=== PATIENT | male | born 1950 | race African-American/Black ===

== ENCOUNTER 2016-08-22 08:46 | Inpatient (IN) | payer MEDICARE, OTHER ==
[2016-08-22] VITALS (678 sets, daily range): BP systolic 98–104; BP diastolic 70–76; PULSE 67–85; TEMP 96.9–100; O2SAT 73–100
[~2016-08-22] VITALS: Ht 180.3 cm; Wt 81.2 kg
[~2016-08-22 08:46] MED LIST: ALEVE 220MG220 MG PO; ALEVE PRN; ASPIRIN E.C. 8181 MG PO; BIAXIN 500MG T500 MG PO; CLARITIN; DESYREL; FLEXERIL; FLEXERIL10 MG PO; FOLIC ACID 11 MG/TA1 PO; LISINOPRIL2.5 MG PO; LORTAB 5/500 501 TAB PO; MIRALAX PA17 GM/Dose PO; PEN-VEE K500 MG PO; PRINIVIL2.5 MG PO; PROAIR HFA0.09 MG/AC IH; SENNA8.6 MG PO; ZESTORETIC 12.51 TA1 PO; ZOLOFT 25MG25 MG PO; [UNRECOGNIZED DRUG - REMARK]
[2016-08-22] MEDS ORDERED: PERCOCET 325 MG1 TAB PO (09:04)
[2016-08-22] MEDS ORDERED: FENTANYL 50MCG TD (09:06)
[2016-08-22] MEDS ORDERED: CHANTIX 0.5MG0.5 MG PO (09:06)
[2016-08-22] MEDS ORDERED: COMPAZINE 110 MG/TAB PO (09:06)
[2016-08-22] MEDS ORDERED: FLOMAX 0.40.4 MG/CAP PO (09:07)
[2016-08-22] MEDS ORDERED: GERI-TUSSI100 MG/5 M PO (09:08)
[2016-08-22 09:59] LABS: INR 1.5 (0.8-3.0); PROTHROMBIN TIME 16.7 SECONDS (9.7-12.8)
[2016-08-22 10:06] LABS: BASO % 0.1 % (0.0-2.0); EOS # 0.1 (0.0-0.7); EOS % 0.4 % (0-4.0); GRAN # 12.8 (1.4-6.5); HEMATOCRIT 31.5 % (42.0-52.0); HEMOGLOBIN 9.6 g/dl (13.5-18.0); LYMPH # 1.1 (1.2-3.4); LYMPH % 7.1 % (20.0-51.0); MEAN CELL VOLUME 80 fl (80.0-100.0); MEAN CORPUSCULAR HEMOGLOBIN 24 pg (27.0-31.0); MEAN CORPUSCULAR HGB CONC 31 g/dl (33.0-37.0); MEAN PLATELET VOLUME 9.7 fl (7.4-10.4); MONO # 1.2 (0.1-0.6); MONO % 7.9 % (1.7-9.3); PLATELET COUNT 312 K/mm3 (130-400); RED BLOOD COUNT 3.94 M/mm3 (4.20-5.60); REDCELL DISTRIBUTION WIDTH-CV 17.5 % (11.5-14.5); WHITE BLOOD COUNT 15.2 K/mm3 (4.8-10.8)
[2016-08-22] MEDS ORDERED: OPDIVO10 MG/ML IV (10:07)
[2016-08-22 10:12] LABS: ALBUMIN 3.1 gm/dL (3.5-5.0); BILIRUBIN,TOTAL 0.6 mg/dL (0.0-1.0); CALCIUM 9.3 mg/dL (8.4-10.2); CREATININE, serum 0.72 mg/dL (0.66-1.25); POTASSIUM 4.8 mmol/L (3.4-5.0); TOTAL PROTEIN 7.6 gm/dL (6.4-8.2)
[2016-08-22 10:26] LABS: TROPONIN-I 0.091 ng/mL (0.000-0.034)
[2016-08-22 16:41] LABS: PH 5 (5-8); SQUAMOUS EPITHELIAL None Seen /hpf; URINE APPEARANCE Hazy; URINE BACTERIA None Seen /hpf; URINE BILIRUBIN Negative (NEGATIVE); URINE BLOOD Negative (NEGATIVE); URINE COLOR Amber; URINE GLUCOSE Negative (NEGATIVE); URINE KETONE Negative (NEGATIVE); URINE UROBILINOGEN >=4.0 mg/dL (NEGATIVE)
[2016-08-22 16:59] LABS: INFLUENZA B NEGATIVE
[2016-08-23] VITALS (786 sets, daily range): BP systolic 107–139; BP diastolic 64–94; PULSE 64–72; TEMP 97–98.2; O2SAT 37–100
[2016-08-23 06:10] LABS: HEMATOCRIT 32.5 % (42.0-52.0); HEMOGLOBIN 9.9 g/dl (13.5-18.0); MEAN CELL VOLUME 80 fl (80.0-100.0); MEAN CORPUSCULAR HEMOGLOBIN 24 pg (27.0-31.0); MEAN CORPUSCULAR HGB CONC 31 g/dl (33.0-37.0); MEAN PLATELET VOLUME 10.3 fl (7.4-10.4); PLATELET COUNT 339 K/mm3 (130-400); RED BLOOD COUNT 4.06 M/mm3 (4.20-5.60); REDCELL DISTRIBUTION WIDTH-CV 17.5 % (11.5-14.5); WHITE BLOOD COUNT 8.8 K/mm3 (4.8-10.8)
[2016-08-23 06:19] LABS: ADJUSTED CALCIUM 9.1 mg/dL (8.4-10.2); ALBUMIN 2.9 gm/dL (3.5-5.0); BILIRUBIN,TOTAL 0.6 mg/dL (0.0-1.0); CALCIUM 8.2 mg/dL (8.4-10.2); CREATININE, serum 0.59 mg/dL (0.66-1.25); MAGNESIUM 1.8 mg/dL (1.6-2.3); POTASSIUM 4.2 mmol/L (3.4-5.0); TOTAL PROTEIN 7.1 gm/dL (6.4-8.2)
[2016-08-23 07:04] LABS: BAND 4 % (0-10); MYELOCYTE 3 % (0-0); NEUTROPHILS 86 % (42.0-75.2); PLATELET ESTIMATE NORMAL (NORMAL); TOTAL CELLS COUNTED 100
[2016-08-23 07:05] LABS: ADD PATHOLOGY DIFF REVIEW YES
[2016-08-23 07:23] LABS: PATHOLOGY DIFF REVIEW OK
[2016-08-24 03:15] VITALS: BP 98/64; PULSE 71; TEMP 97.1
[2016-08-24 07:44] VITALS: BP 97/62; PULSE 71; TEMP 97.4
[2016-08-24] MEDS ORDERED: ROBITUSSIN A-C S1 M1 PO (09:02)
[2016-08-24 11:32] VITALS: BP 98/61; PULSE 74; TEMP 97.9
[2016-08-24 14:05] LABS: CALCIUM 8.8 mg/dL (8.4-10.2); CREATININE, serum 0.7 mg/dL (0.66-1.25); POTASSIUM 4.8 mmol/L (3.4-5.0)
[2016-08-24 15:48] VITALS: BP 104/65; PULSE 73; TEMP 98.6
[2016-08-24 19:21] VITALS: BP 101/65; PULSE 72; TEMP 97.5
[2016-08-25 01:09] VITALS: BP 102/78; PULSE 86; TEMP 97.7
[2016-08-25 05:04] VITALS: BP 97/62; PULSE 67; TEMP 97.8
[2016-08-25 07:36] LABS: BASO % 0.2 % (0.0-2.0); EOS % 0.1 % (0-4.0); GRAN # 11.6 (1.4-6.5); LYMPH # 2.1 (1.2-3.4); LYMPH % 13.7 % (20.0-51.0); MEAN CELL VOLUME 81 fl (80.0-100.0); MEAN CORPUSCULAR HGB CONC 30 g/dl (33.0-37.0); MEAN PLATELET VOLUME 9.8 fl (7.4-10.4); MONO # 1.4 (0.1-0.6); MONO % 8.8 % (1.7-9.3); PLATELET COUNT 395 K/mm3 (130-400); RED BLOOD COUNT 3.45 M/mm3 (4.20-5.60); REDCELL DISTRIBUTION WIDTH-CV 18.4 % (11.5-14.5); WHITE BLOOD COUNT 15.3 K/mm3 (4.8-10.8)
[2016-08-25 07:44] LABS: CALCIUM 8.9 mg/dL (8.4-10.2); CREATININE, serum 0.72 mg/dL (0.66-1.25); POTASSIUM 3.9 mmol/L (3.4-5.0)
[2016-08-25 08:13] LABS: HEMOGLOBIN 8.5 g/dl (13.5-18.0); MEAN CORPUSCULAR HEMOGLOBIN 25 pg (27.0-31.0)
[2016-08-25 08:24] VITALS: BP 94/53; PULSE 74; TEMP 97.6
[2016-08-25 12:11] VITALS: BP 112/64; PULSE 71; TEMP 97.8
[2016-08-25 15:51] VITALS: BP 105/62; PULSE 79; TEMP 97.7
[2016-08-25 20:06] VITALS: BP 120/73; PULSE 70; TEMP 97.6
[2016-08-26] VITALS (569 sets, daily range): BP systolic 102–121; BP diastolic 60–82; PULSE 71–83; TEMP 97.4–98.1; O2SAT 62–99
[2016-08-26 12:04] LABS: BASO % 0.1 % (0.0-2.0); GRAN % 87.8 % (42.2-75.2); HEMATOCRIT 30.2 % (42.0-52.0); HEMOGLOBIN 9.3 g/dl (13.5-18.0); LYMPH % 5.6 % (20.0-51.0); MEAN CELL VOLUME 82 fl (80.0-100.0); MEAN CORPUSCULAR HEMOGLOBIN 25 pg (27.0-31.0); MEAN CORPUSCULAR HGB CONC 31 g/dl (33.0-37.0); MEAN PLATELET VOLUME 9.2 fl (7.4-10.4); MONO # 0.9 (0.1-0.6); MONO % 5.3 % (1.7-9.3); PLATELET COUNT 474 K/mm3 (130-400); REDCELL DISTRIBUTION WIDTH-CV 19.1 % (11.5-14.5)
[2016-08-26 12:24] LABS: ARTERIAL BLD GAS O2 SATURATION 90.6 % (92-100); ARTERIAL BLD GAS TCO2 CT 23.1; ARTERIAL BLOOD GAS BASE EXCESS -1.4 (-2-2); ARTERIAL BLOOD GAS HCO3 22.1 meq/L (22-26); ARTERIAL BLOOD GAS PHT 7.45 C (7.35-7.45); ARTERIAL BLOOD GAS PO2 62.3 mmHg (80-100); ARTERIAL BLOOD GAS PO2T 62.3 (80-100); ARTERIAL BLOOD GAS pH 7.45 (7.35-7.45); OXYHEMOGLOBIN 89.9 %
[2016-08-26 12:27] LABS: ALLEN TEST YES; ATS? YES
[2016-08-26 12:28] LABS: ALLENS TEST RESULT PASS
[2016-08-27] VITALS (1193 sets, daily range): BP systolic 106–119; BP diastolic 72–84; PULSE 72–82; TEMP 97.3–98.1; O2SAT 51–100
[2016-08-27 05:52] LABS: BASO % 0.1 % (0.0-2.0); GRAN % 87.6 % (42.2-75.2); HEMATOCRIT 29.2 % (42.0-52.0); LYMPH # 0.9 (1.2-3.4); LYMPH % 7.4 % (20.0-51.0); MEAN CELL VOLUME 80 fl (80.0-100.0); MEAN CORPUSCULAR HEMOGLOBIN 25 pg (27.0-31.0); MEAN CORPUSCULAR HGB CONC 31 g/dl (33.0-37.0); MEAN PLATELET VOLUME 9.3 fl (7.4-10.4); MONO # 0.5 (0.1-0.6); MONO % 3.7 % (1.7-9.3); PLATELET COUNT 467 K/mm3 (130-400); RED BLOOD COUNT 3.64 M/mm3 (4.20-5.60); REDCELL DISTRIBUTION WIDTH-CV 19.2 % (11.5-14.5); WHITE BLOOD COUNT 12.6 K/mm3 (4.8-10.8)
[2016-08-27 06:01] LABS: ADJUSTED CALCIUM 9.7 mg/dL (8.4-10.2); ALBUMIN 3.4 gm/dL (3.5-5.0); BILIRUBIN,TOTAL 0.8 mg/dL (0.0-1.0); CALCIUM 9.2 mg/dL (8.4-10.2); CREATININE, serum 0.75 mg/dL (0.66-1.25); MAGNESIUM 1.7 mg/dL (1.6-2.3); PHOSPHOROUS 3.4 mg/dL (2.5-4.5); POTASSIUM 4.1 mmol/L (3.4-5.0); TOTAL PROTEIN 7.7 gm/dL (6.4-8.2)
[2016-08-28] VITALS (328 sets, daily range): BP systolic 104–129; BP diastolic 62–72; PULSE 65–84; TEMP 97.8–98.9; O2SAT 40–100
[2016-08-28 05:56] LABS: BASO % 0.1 % (0.0-2.0); GRAN # 14.8 (1.4-6.5); GRAN % 90.6 % (42.2-75.2); LYMPH # 0.6 (1.2-3.4); LYMPH % 3.9 % (20.0-51.0); MEAN CELL VOLUME 81 fl (80.0-100.0); MEAN CORPUSCULAR HGB CONC 31 g/dl (33.0-37.0); MEAN PLATELET VOLUME 9.5 fl (7.4-10.4); MONO # 0.7 (0.1-0.6); MONO % 4.5 % (1.7-9.3); PLATELET COUNT 469 K/mm3 (130-400); RED BLOOD COUNT 3.36 M/mm3 (4.20-5.60); REDCELL DISTRIBUTION WIDTH-CV 19.1 % (11.5-14.5); WHITE BLOOD COUNT 16.3 K/mm3 (4.8-10.8)
[2016-08-28 05:58] LABS: HEMATOCRIT 27.1 % (42.0-52.0); HEMOGLOBIN 8.3 g/dl (13.5-18.0); MEAN CORPUSCULAR HEMOGLOBIN 25 pg (27.0-31.0)
[2016-08-28 05:59] LABS: INR 1.6 (0.8-3.0)
[2016-08-28 06:09] LABS: CREATININE, serum 0.75 mg/dL (0.66-1.25); POTASSIUM 4.2 mmol/L (3.4-5.0)
[2016-08-28 10:24] LABS: TOTAL IRON BINDING CAPACITY 198 ug/dL (261-462)
[2016-08-29 00:40] VITALS: BP 125/74; PULSE 85; TEMP 98.2
[2016-08-29 05:06] VITALS: BP 115/73; PULSE 57; TEMP 97.5
[2016-08-29 05:19] LABS: BASO % 0.1 % (0.0-2.0); GRAN # 14.4 (1.4-6.5); GRAN % 92.1 % (42.2-75.2); LYMPH # 0.5 (1.2-3.4); LYMPH % 3.3 % (20.0-51.0); MEAN CELL VOLUME 82 fl (80.0-100.0); MEAN CORPUSCULAR HGB CONC 31 g/dl (33.0-37.0); MEAN PLATELET VOLUME 9.1 fl (7.4-10.4); MONO # 0.6 (0.1-0.6); MONO % 3.8 % (1.7-9.3); PLATELET COUNT 498 K/mm3 (130-400); RED BLOOD COUNT 3.46 M/mm3 (4.20-5.60); REDCELL DISTRIBUTION WIDTH-CV 19.5 % (11.5-14.5); WHITE BLOOD COUNT 15.7 K/mm3 (4.8-10.8)
[2016-08-29 05:22] LABS: HEMATOCRIT 28.2 % (42.0-52.0); HEMOGLOBIN 8.6 g/dl (13.5-18.0); MEAN CORPUSCULAR HEMOGLOBIN 25 pg (27.0-31.0)
[2016-08-29 05:26] LABS: INR 1.7 (0.8-3.0)
[2016-08-29 05:32] LABS: CALCIUM 9.2 mg/dL (8.4-10.2); CREATININE, serum 0.65 mg/dL (0.66-1.25); POTASSIUM 3.8 mmol/L (3.4-5.0)
[2016-08-29 05:37] LABS: VANCOMYCIN TROUGH 18.53 ug/mL (7.00-20.00)
[2016-08-29 09:39] VITALS: BP 117/67; PULSE 67; TEMP 97.5
[2016-08-29 13:41] VITALS: BP 105/65; PULSE 60; TEMP 97.4
[2016-08-29 18:12] VITALS: BP 115/69; PULSE 69; TEMP 98.1
[2016-08-29 21:51] VITALS: BP 112/67; PULSE 67; TEMP 97.8
[2016-08-30 01:34] VITALS: BP 117/73; PULSE 64; TEMP 98
[2016-08-30 05:55] VITALS: BP 130/78; PULSE 63; TEMP 98.6
[2016-08-30 07:46] LABS: CALCIUM 8.7 mg/dL (8.4-10.2); CREATININE, serum 0.65 mg/dL (0.66-1.25); POTASSIUM 3.5 mmol/L (3.4-5.0)
[2016-08-30 08:22] LABS: PROTHROMBIN TIME 22.1 SECONDS (9.7-12.8)
[2016-08-30 09:48] VITALS: BP 112/64; PULSE 75; TEMP 97.9
[2016-08-30 12:00] LABS: BASO % 0.1 % (0.0-2.0); GRAN # 13.4 (1.4-6.5); GRAN % 89.2 % (42.2-75.2); LYMPH # 0.5 (1.2-3.4); LYMPH % 3.4 % (20.0-51.0); MEAN CELL VOLUME 83 fl (80.0-100.0); MEAN CORPUSCULAR HGB CONC 30 g/dl (33.0-37.0); MEAN PLATELET VOLUME 9.5 fl (7.4-10.4); MONO % 6.5 % (1.7-9.3); PLATELET COUNT 541 K/mm3 (130-400); RED BLOOD COUNT 3.38 M/mm3 (4.20-5.60); REDCELL DISTRIBUTION WIDTH-CV 19.7 % (11.5-14.5)
[2016-08-30 12:03] LABS: HEMATOCRIT 28.1 % (42.0-52.0); HEMOGLOBIN 8.5 g/dl (13.5-18.0); MEAN CORPUSCULAR HEMOGLOBIN 25 pg (27.0-31.0)
[2016-08-30 13:31] VITALS: BP 112/61; PULSE 67; TEMP 97.1
[2016-08-30 18:14] VITALS: BP 104/57; PULSE 73; TEMP 98.3
[2016-08-30 21:07] VITALS: BP 126/66; PULSE 69; TEMP 98.3
[2016-08-31 05:28] VITALS: BP 131/78; PULSE 58; TEMP 97.5
[2016-08-31 07:02] LABS: BASO % 0.1 % (0.0-2.0); GRAN # 13.4 (1.4-6.5); GRAN % 86.7 % (42.2-75.2); LYMPH # 0.8 (1.2-3.4); LYMPH % 5.2 % (20.0-51.0); MEAN CELL VOLUME 82 fl (80.0-100.0); MEAN CORPUSCULAR HGB CONC 31 g/dl (33.0-37.0); MONO # 1.1 (0.1-0.6); MONO % 7.1 % (1.7-9.3); PLATELET COUNT 564 K/mm3 (130-400); RED BLOOD COUNT 3.68 M/mm3 (4.20-5.60); REDCELL DISTRIBUTION WIDTH-CV 20.1 % (11.5-14.5); WHITE BLOOD COUNT 15.5 K/mm3 (4.8-10.8)
[2016-08-31 07:03] LABS: HEMATOCRIT 30.2 % (42.0-52.0); HEMOGLOBIN 9.2 g/dl (13.5-18.0); MEAN CORPUSCULAR HEMOGLOBIN 25 pg (27.0-31.0)
[2016-08-31 07:10] LABS: INR 2.2 (0.8-3.0); PROTHROMBIN TIME 24.7 SECONDS (9.7-12.8)
[2016-08-31 07:19] LABS: CALCIUM 9.1 mg/dL (8.4-10.2); CREATININE, serum 0.67 mg/dL (0.66-1.25); POTASSIUM 3.8 mmol/L (3.4-5.0)
[2016-08-31 07:44] VITALS: BP 129/72; PULSE 55; TEMP 98
[2016-08-31] MEDS ORDERED: COUMADIN 3MG3 MG/TAB PO (10:16)
[2016-08-31] MEDS ORDERED: CORDARONE200 MG/TAB PO (10:20)
[2016-08-31] MEDS ORDERED: K-DUR20 MEQ PO (10:22)
[2016-08-31] MEDS ORDERED: LASIX 40MG TABL40 MG PO (10:23)
[2016-08-31] MEDS ORDERED: PREDNISONE20 MG PO (10:24)
[2016-08-31 14:33] VITALS: BP 118/67; PULSE 75; TEMP 98
== END 2016-08-31 16:45 | disposition home health service (06) | DRG 190 ==
LOC: COL.ER 08:46 → ICU 10:55 → MEDICAL 08-23 17:11 → ICU 08-26 13:42 → IMCU 08-27 22:39 → ICU 08-27 22:39 → IMCU 08-27 22:39 → SURG 08-28 14:10 → IMCU 08-28 14:10 → SURG 08-31 16:45
PROVIDERS: Emergency Medicine; Family Medicine; Internal Medicine; Physician Assistant
PROC: 5A2204Z Restoration of Cardiac Rhythm, Single (ICD-10-PCS; principal; 2016-08-22)
DX: J44.0 Chronic obstructive pulmonary disease with (acute) lower respiratory infection (principal); J18.9 Pneumonia, unspecified organism; I26.99 Other pulmonary embolism without acute cor pulmonale; J96.01 Acute respiratory failure with hypoxia; I50.21 Acute systolic (congestive) heart failure; C34.02 Malignant neoplasm of left main bronchus; E44.0 Moderate protein-calorie malnutrition; C79.9 Secondary malignant neoplasm of unspecified site; I48.91 Unspecified atrial fibrillation; Z85.46 Personal history of malignant neoplasm of prostate; F17.210 Nicotine dependence, cigarettes, uncomplicated; I11.0 Hypertensive heart disease with heart failure; J44.1 Chronic obstructive pulmonary disease with (acute) exacerbation
CPT/HCPCS: 99223-AI; 99232-AI; 99233-AI; 99239; C1751; C1894; J0282; J0692; J0696; J1160; J1644; J1650; J1940; J1956; J2270; J2405; J2704; J2920; J2930; J3370; J7030; J7050; J7060; J7512; Q9967

== ENCOUNTER 2016-09-09 12:44 | Emergency (ER) | payer MEDICARE, OTHER ==
[~2016-09-09] VITALS: Ht 180.3 cm; Wt 80.0 kg
[~2016-09-09 12:44] MED LIST changes: +CHANTIX 0.5MG0.5 MG PO; +COMPAZINE 110 MG/TAB PO; +CORDARONE200 MG/TAB PO; +COUMADIN 3MG3 MG/TAB PO; +FENTANYL 50MCG TD; +FLOMAX 0.40.4 MG/CAP PO; +GERI-TUSSI100 MG/5 M PO; +K-DUR20 MEQ PO; +LASIX 40MG TABL40 MG PO; +OPDIVO10 MG/ML IV; +PERCOCET 325 MG1 TAB PO; +PREDNISONE20 MG PO; +ROBITUSSIN A-C S1 M1 PO
[2016-09-09 12:48] VITALS: PULSE 92
[2016-09-09 13:31] LABS: INR 2.7 (0.8-3.0)
[2016-09-09 13:33] LABS: PARTIAL THROMBOPLASTIN TIME 38.6 SECONDS (26.0-37.0)
[2016-09-09 13:35] LABS: BASO % 0.1 % (0.0-2.0); EOS % 0.1 % (0-4.0); GRAN # 14.2 (1.4-6.5); GRAN % 91.2 % (42.2-75.2); HEMATOCRIT 28.7 % (42.0-52.0); HEMOGLOBIN 8.9 g/dl (13.5-18.0); LYMPH # 0.4 (1.2-3.4); LYMPH % 2.7 % (20.0-51.0); MEAN CELL VOLUME 84 fl (80.0-100.0); MEAN CORPUSCULAR HEMOGLOBIN 26 pg (27.0-31.0); MEAN CORPUSCULAR HGB CONC 31 g/dl (33.0-37.0); MONO # 0.8 (0.1-0.6); MONO % 4.9 % (1.7-9.3); PLATELET COUNT 419 K/mm3 (130-400); RED BLOOD COUNT 3.43 M/mm3 (4.20-5.60); REDCELL DISTRIBUTION WIDTH-CV 21.2 % (11.5-14.5); WHITE BLOOD COUNT 15.6 K/mm3 (4.8-10.8)
[2016-09-09] MEDS ORDERED: CEPHALEXIN500 M1 PO (17:35)
[2016-09-09 18:06] VITALS: BP 122/80
== END 2016-09-09 18:06 | disposition home or self-care (01) ==
LOC: COL.ER 12:44
PROVIDERS: Emergency Medicine
DX: R04.0 Epistaxis (principal); D64.9 Anemia, unspecified; Z79.01 Long term (current) use of anticoagulants; Z86.711 Personal history of pulmonary embolism; Z99.81 Dependence on supplemental oxygen; I10 Essential (primary) hypertension; F17.210 Nicotine dependence, cigarettes, uncomplicated

== ENCOUNTER 2016-09-11 00:59 | Observation (INO) | payer MEDICARE, OTHER ==
[2016-09-11] VITALS (19 sets, daily range): BP systolic 90–129; BP diastolic 37–88; PULSE 78–88; TEMP 97–98.7
[~2016-09-11] VITALS: Ht 180.3 cm; Wt 71.3 kg
[~2016-09-11 00:59] MED LIST changes: +CEPHALEXIN500 M1 PO
[2016-09-11 02:01] LABS: BASO % 0.1 % (0.0-2.0); EOS % 0.1 % (0-4.0); GRAN # 13.8 (1.4-6.5); GRAN % 81.1 % (42.2-75.2); LYMPH # 1.8 (1.2-3.4); LYMPH % 10.8 % (20.0-51.0); MEAN CELL VOLUME 81 fl (80.0-100.0); MEAN CORPUSCULAR HGB CONC 32 g/dl (33.0-37.0); MEAN PLATELET VOLUME 9.1 fl (7.4-10.4); MONO # 1.2 (0.1-0.6); MONO % 7.2 % (1.7-9.3); PLATELET COUNT 386 K/mm3 (130-400); REDCELL DISTRIBUTION WIDTH-CV 21.2 % (11.5-14.5)
[2016-09-11 02:02] LABS: HEMATOCRIT 22.7 % (42.0-52.0); MEAN CORPUSCULAR HEMOGLOBIN 26 pg (27.0-31.0)
[2016-09-11 02:03] LABS: HEMOGLOBIN 7.3 g/dl (13.5-18.0)
[2016-09-11 02:10] LABS: ADJUSTED CALCIUM 9.6 mg/dL (8.4-10.2); ALBUMIN 3.3 gm/dL (3.5-5.0); BILIRUBIN,TOTAL 0.8 mg/dL (0.0-1.0); CREATININE, serum 0.74 mg/dL (0.66-1.25); POTASSIUM 4.7 mmol/L (3.4-5.0)
[2016-09-11 02:13] LABS: INR 2.8 (0.8-3.0)
[2016-09-11 04:30] LABS: HEMATOCRIT 21.2 % (42.0-52.0); HEMOGLOBIN 6.8 g/dl (13.5-18.0)
[2016-09-11 17:03] LABS: HEMATOCRIT 27.2 % (42.0-52.0); HEMOGLOBIN 8.6 g/dl (13.5-18.0)
[2016-09-11 17:11] LABS: INR 2.4 (0.8-3.0); PROTHROMBIN TIME 27.6 SECONDS (9.7-12.8)
[2016-09-12 02:58] VITALS: BP 127/77; PULSE 80; TEMP 98.7
[2016-09-12 07:35] LABS: HEMATOCRIT 25.8 % (42.0-52.0); HEMOGLOBIN 8.2 g/dl (13.5-18.0)
[2016-09-12 07:44] LABS: CALCIUM 9.1 mg/dL (8.4-10.2); CREATININE, serum 0.83 mg/dL (0.66-1.25); MAGNESIUM 1.9 mg/dL (1.6-2.3)
[2016-09-12 07:58] LABS: PROTHROMBIN TIME 22.3 SECONDS (9.7-12.8)
[2016-09-12 08:22] VITALS: BP 118/74; PULSE 81; TEMP 97.6
[2016-09-12] MEDS ORDERED: AMOXICILLIN 8751 TAB PO (09:49)
[2016-09-12] MEDS ORDERED: FERROUS SU325 MG/TAB PO (09:55)
== END 2016-09-12 11:29 | disposition home or self-care (01) ==
LOC: COL.ER 00:59 → MEDICAL 02:48
PROVIDERS: Internal Medicine; Nurse Practitioner Family; Physician Assistant
DX: R04.0 Epistaxis (principal); D64.9 Anemia, unspecified; D68.32 Hemorrhagic disorder due to extrinsic circulating anticoagulants; C34.90 Malignant neoplasm of unspecified part of unspecified bronchus or lung; Z87.891 Personal history of nicotine dependence; I50.9 Heart failure, unspecified; I48.91 Unspecified atrial fibrillation; Z79.01 Long term (current) use of anticoagulants; Z86.711 Personal history of pulmonary embolism; J44.9 Chronic obstructive pulmonary disease, unspecified; Z85.46 Personal history of malignant neoplasm of prostate
CPT/HCPCS: 99239; G0378; J1940; J7030; J7512; P9016

== ENCOUNTER 2016-09-14 10:27 | Day surgery (SDC) | payer MEDICARE, OTHER ==
[~2016-09-14] VITALS: Ht 180.3 cm; Wt 68.6 kg
[~2016-09-14 10:27] MED LIST changes: +AMOXICILLIN 8751 TAB PO; +FERROUS SU325 MG/TAB PO
[2016-09-14] MEDS ORDERED: FERROUS SU325 MG/TAB PO (11:24)
[2016-09-14 11:26] VITALS: BP 111/75; PULSE 72
[2016-09-14 11:57] LABS: MEAN CELL VOLUME 85 fl (80.0-100.0); MEAN CORPUSCULAR HGB CONC 31 g/dl (33.0-37.0); MEAN PLATELET VOLUME 9.3 fl (7.4-10.4); PLATELET COUNT 337 K/mm3 (130-400); RED BLOOD COUNT 3.04 M/mm3 (4.20-5.60); REDCELL DISTRIBUTION WIDTH-CV 20.7 % (11.5-14.5); WHITE BLOOD COUNT 10.4 K/mm3 (4.8-10.8)
[2016-09-14 11:58] LABS: HEMATOCRIT 25.8 % (42.0-52.0); MEAN CORPUSCULAR HEMOGLOBIN 26 pg (27.0-31.0)
[2016-09-14 12:00] LABS: INR 1.6 (0.8-3.0); PROTHROMBIN TIME 18.1 SECONDS (9.7-12.8)
[2016-09-14 12:51] VITALS: BP 117/70; PULSE 76
[2016-09-14 13:55] VITALS: BP 109/67; PULSE 73; TEMP 98.1
[2016-09-14 14:10] VITALS: BP 107/61; PULSE 74
== END 2016-09-14 14:20 | disposition home or self-care (01) ==
LOC: EUO 10:27 → COL.RAD 10:30 → EUO 10:30
PROVIDERS: Radiology Diagnostic Radiology
DX: I26.99 Other pulmonary embolism without acute cor pulmonale (principal); I48.91 Unspecified atrial fibrillation; I50.9 Heart failure, unspecified; I10 Essential (primary) hypertension; Z79.01 Long term (current) use of anticoagulants; Z85.118 Personal history of other malignant neoplasm of bronchus and lung; Z87.891 Personal history of nicotine dependence; Z85.46 Personal history of malignant neoplasm of prostate
CPT/HCPCS: C1880; J7120; Q9967

== ENCOUNTER 2016-09-17 08:43 | Inpatient (IN) | payer MEDICARE, OTHER ==
[~2016-09-17] VITALS: Ht 177.8 cm; Wt 75.1 kg
[2016-09-17 09:23] LABS: VENOUS BLOOD GAS BE 6.1 (-4-4)
[2016-09-17 09:24] LABS: VENOUS BLOOD GAS SITE VENIPUNCTURE
[2016-09-17 09:35] LABS: BASO % 0.1 % (0.0-2.0); EOS % 0.2 % (0-4.0); GRAN # 8.6 (1.4-6.5); GRAN % 79.9 % (42.2-75.2); LYMPH # 1.2 (1.2-3.4); MEAN CELL VOLUME 87 fl (80.0-100.0); MEAN CORPUSCULAR HGB CONC 31 g/dl (33.0-37.0); MEAN PLATELET VOLUME 9.3 fl (7.4-10.4); MONO # 0.8 (0.1-0.6); MONO % 7.7 % (1.7-9.3); PLATELET COUNT 338 K/mm3 (130-400); RED BLOOD COUNT 2.96 M/mm3 (4.20-5.60); WHITE BLOOD COUNT 10.8 K/mm3 (4.8-10.8)
[2016-09-17 09:37] LABS: HEMATOCRIT 25.6 % (42.0-52.0); HEMOGLOBIN 7.8 g/dl (13.5-18.0); MEAN CORPUSCULAR HEMOGLOBIN 26 pg (27.0-31.0)
[2016-09-17 09:39] LABS: INR 1.5 (0.8-3.0); PROTHROMBIN TIME 16.4 SECONDS (9.7-12.8)
[2016-09-17 09:50] LABS: ANION GAP 11 mmol/L (7-16); BLOOD UREA NITROGEN 19 mg/dL (9-20); CALCIUM 9.4 mg/dL (8.4-10.2); CARBON DIOXIDE 30 mmol/L (22-30); CHLORIDE 94 mmol/L (98-107); GLUCOSE 118 mg/dL (74-106); POTASSIUM 4.1 mmol/L (3.4-5.0); SODIUM 135 mmol/L (137-145)
[2016-09-17 09:58] LABS: B-TYPE NATRIURETIC PEPTIDE 807 pg/mL (0-125)
[2016-09-17 10:03] LABS: TROPONIN-I < 0.012 ng/mL (0.000-0.034)
[2016-09-17 13:00] VITALS: BP 106/77; PULSE 68; TEMP 97.4
[2016-09-17 15:21] VITALS: BP 101/59; PULSE 80; TEMP 96.8
[2016-09-17 19:31] VITALS: BP 112/61; PULSE 75; TEMP 97.4
[2016-09-17 23:37] VITALS: BP 115/74; PULSE 72; TEMP 98.2
[2016-09-18 03:43] VITALS: BP 106/77; PULSE 73; TEMP 98.2
[2016-09-18 07:50] VITALS: BP 107/62; PULSE 68; TEMP 97.6
[2016-09-18 11:19] VITALS: BP 113/60; PULSE 70; TEMP 98.9
[2016-09-18 16:06] VITALS: BP 108/61; PULSE 64; TEMP 98.9
[2016-09-18 20:15] VITALS: BP 121/60; PULSE 66; TEMP 97.4
[2016-09-19 00:29] VITALS: BP 116/66; PULSE 66; TEMP 98.7
[2016-09-19 03:51] VITALS: BP 123/76; PULSE 55; TEMP 98.5
[2016-09-19 07:30] VITALS: BP 123/71; PULSE 85; TEMP 97.9
[2016-09-19 07:35] LABS: BASO % 0.1 % (0.0-2.0); EOS % 0.1 % (0-4.0); GRAN % 75.9 % (42.2-75.2); LYMPH # 2.2 (1.2-3.4); LYMPH % 13.9 % (20.0-51.0); MEAN CELL VOLUME 86 fl (80.0-100.0); MEAN CORPUSCULAR HGB CONC 30 g/dl (33.0-37.0); MEAN PLATELET VOLUME 9.5 fl (7.4-10.4); MONO # 1.4 (0.1-0.6); MONO % 8.9 % (1.7-9.3); PLATELET COUNT 437 K/mm3 (130-400); RED BLOOD COUNT 2.96 M/mm3 (4.20-5.60); REDCELL DISTRIBUTION WIDTH-CV 19.9 % (11.5-14.5); WHITE BLOOD COUNT 15.9 K/mm3 (4.8-10.8)
[2016-09-19 07:39] LABS: HEMATOCRIT 25.4 % (42.0-52.0); HEMOGLOBIN 7.7 g/dl (13.5-18.0); MEAN CORPUSCULAR HEMOGLOBIN 26 pg (27.0-31.0)
[2016-09-19 07:48] LABS: CALCIUM 9.2 mg/dL (8.4-10.2); CREATININE, serum 0.68 mg/dL (0.66-1.25); POTASSIUM 3.9 mmol/L (3.4-5.0)
[2016-09-19] MEDS ORDERED: LOVENOX 8080 MG/0.8 SQ (10:35)
[2016-09-19] MEDS ORDERED: PRINCIPEN500 MG PO (10:38)
[2016-09-19 10:59] VITALS: BP 111/62; PULSE 73; TEMP 98.6
== END 2016-09-19 13:00 | disposition home health service (06) | DRG 189 ==
LOC: COL.ER 08:43 → MEDICAL 11:20
PROVIDERS: Emergency Medicine; Family Medicine
DX: J96.21 Acute and chronic respiratory failure with hypoxia (principal); I26.99 Other pulmonary embolism without acute cor pulmonale; E43 Unspecified severe protein-calorie malnutrition; I50.22 Chronic systolic (congestive) heart failure; C34.12 Malignant neoplasm of upper lobe, left bronchus or lung; C79.89 Secondary malignant neoplasm of other specified sites; C79.51 Secondary malignant neoplasm of bone; I48.91 Unspecified atrial fibrillation; J44.9 Chronic obstructive pulmonary disease, unspecified
CPT/HCPCS: 99232-AI; 99233-AI; 99238; C1880; J1650; J2930; J7120; J7512; Q9967

== ENCOUNTER 2016-09-22 16:03 | Emergency (ER) | payer MEDICARE, OTHER ==
[~2016-09-22] VITALS: Ht 180.3 cm; Wt 68.2 kg
[~2016-09-22 16:03] MED LIST changes: +LOVENOX 8080 MG/0.8 SQ; +PRINCIPEN500 MG PO
[2016-09-22 16:09] VITALS: TEMP 98
[2016-09-22 16:37] LABS: BASO % 0.2 % (0.0-2.0); EOS # 0.1 (0.0-0.7); EOS % 0.6 % (0-4.0); GRAN # 9.3 (1.4-6.5); GRAN % 72.8 % (42.2-75.2); LYMPH # 1.6 (1.2-3.4); LYMPH % 12.4 % (20.0-51.0); MEAN CELL VOLUME 86 fl (80.0-100.0); MEAN CORPUSCULAR HGB CONC 30 g/dl (33.0-37.0); MEAN PLATELET VOLUME 9.2 fl (7.4-10.4); MONO # 1.7 (0.1-0.6); PLATELET COUNT 436 K/mm3 (130-400); RED BLOOD COUNT 3.22 M/mm3 (4.20-5.60); REDCELL DISTRIBUTION WIDTH-CV 19.5 % (11.5-14.5); WHITE BLOOD COUNT 12.8 K/mm3 (4.8-10.8)
[2016-09-22 16:38] LABS: HEMATOCRIT 27.8 % (42.0-52.0); HEMOGLOBIN 8.3 g/dl (13.5-18.0); INR 1.3 (0.8-3.0); MEAN CORPUSCULAR HEMOGLOBIN 26 pg (27.0-31.0)
[2016-09-22 16:40] LABS: PARTIAL THROMBOPLASTIN TIME 32.8 SECONDS (26.0-37.0)
[2016-09-22 16:47] LABS: CALCIUM 9.2 mg/dL (8.4-10.2); CREATININE, serum 0.85 mg/dL (0.66-1.25); POTASSIUM 4.4 mmol/L (3.4-5.0)
[2016-09-22 18:40] VITALS: BP 123/77; PULSE 80
== END 2016-09-22 19:13 | disposition short-term general hospital (02) ==
LOC: COL.ER 16:03
PROVIDERS: Emergency Medicine
DX: R04.0 Epistaxis (principal); I48.91 Unspecified atrial fibrillation; I25.10 Atherosclerotic heart disease of native coronary artery without angina pectoris; I11.0 Hypertensive heart disease with heart failure; I50.9 Heart failure, unspecified; Z87.891 Personal history of nicotine dependence; Z86.718 Personal history of other venous thrombosis and embolism
CPT/HCPCS: J7030

== ENCOUNTER 2016-10-26 13:08 | Inpatient (IN) | payer MEDICARE, OTHER ==
[~2016-10-26] VITALS: Ht 180.3 cm; Wt 74.1 kg
[2016-10-26] MEDS ORDERED: FERROUS SU325 MG/TAB PO (15:47)
[2016-10-26] MEDS ORDERED: LASIX 40MG TABL40 MG PO (15:49)
[2016-10-26] MEDS ORDERED: K-TAB20 PO (16:11)
[2016-10-26] MEDS ORDERED: CORDARONE200 MG/TAB PO (16:19)
[2016-10-26] MEDS ORDERED: ROXICODONE15 MG PO (16:27)
[2016-10-26] MEDS ORDERED: ELIQUIS 5MG PO (16:29)
[2016-10-26] MEDS ORDERED: NATURAL C500 MG PO (16:30)
[2016-10-26] MEDS ORDERED: CEPHALEXIN500 M1 PO (16:32)
[2016-10-26 16:34] VITALS: BP 118/68; PULSE 72; TEMP 98.2
[2016-10-26 18:05] LABS: ADD PATHOLOGY DIFF REVIEW NO
[2016-10-26 18:08] LABS: MEAN CELL VOLUME 86 fl (80.0-100.0); MEAN CORPUSCULAR HGB CONC 29 g/dl (33.0-37.0); PLATELET COUNT 546 K/mm3 (130-400); RED BLOOD COUNT 3.15 M/mm3 (4.20-5.60); REDCELL DISTRIBUTION WIDTH-CV 19.2 % (11.5-14.5); WHITE BLOOD COUNT 14.8 K/mm3 (4.8-10.8)
[2016-10-26] MEDS ORDERED: MIRALAX PA17 GM/Dose PO (18:08)
[2016-10-26 18:17] LABS: BAND 1 % (0-10); NEUTROPHILS 91 % (42.0-75.2); TOTAL CELLS COUNTED 100
[2016-10-26 18:18] LABS: ADJUSTED CALCIUM 10.2 mg/dL (8.4-10.2); ALBUMIN 3.2 gm/dL (3.5-5.0); BILIRUBIN,TOTAL 0.5 mg/dL (0.0-1.0); CALCIUM 9.6 mg/dL (8.4-10.2); CREATININE, serum 0.66 mg/dL (0.66-1.25); POTASSIUM 3.8 mmol/L (3.4-5.0); TOTAL PROTEIN 7.4 gm/dL (6.4-8.2)
[2016-10-26 18:19] LABS: ANISOCYTOSIS 1+; HEMATOCRIT 27.1 % (42.0-52.0); HEMOGLOBIN 7.9 g/dl (13.5-18.0); HYPOCHROMIA 1+; MEAN CORPUSCULAR HEMOGLOBIN 25 pg (27.0-31.0); POLYCHROMASIA 1+
[2016-10-26 19:28] VITALS: BP 106/59; PULSE 82; TEMP 98.9
[2016-10-26 23:29] VITALS: BP 07/74; BP 107/74; PULSE 62; TEMP 97.7
[2016-10-27 03:22] VITALS: BP 105/66; PULSE 65; TEMP 98.1
[2016-10-27 08:06] LABS: ADD PATHOLOGY DIFF REVIEW NO
[2016-10-27 08:11] LABS: MEAN CELL VOLUME 87 fl (80.0-100.0); MEAN CORPUSCULAR HGB CONC 29 g/dl (33.0-37.0); MEAN PLATELET VOLUME 9.2 fl (7.4-10.4); PLATELET COUNT 530 K/mm3 (130-400); RED BLOOD COUNT 2.93 M/mm3 (4.20-5.60); REDCELL DISTRIBUTION WIDTH-CV 19.1 % (11.5-14.5); WHITE BLOOD COUNT 12.5 K/mm3 (4.8-10.8)
[2016-10-27 08:13] VITALS: BP 101/55; PULSE 77; TEMP 97.7
[2016-10-27 08:24] LABS: CALCIUM 8.9 mg/dL (8.4-10.2); CREATININE, serum 0.59 mg/dL (0.66-1.25); POTASSIUM 4.1 mmol/L (3.4-5.0)
[2016-10-27 08:26] LABS: HEMATOCRIT 25.5 % (42.0-52.0); HEMOGLOBIN 7.4 g/dl (13.5-18.0); MEAN CORPUSCULAR HEMOGLOBIN 25 pg (27.0-31.0)
[2016-10-27 10:40] LABS: ANISOCYTOSIS 3+; BAND 2 % (0-10); HYPOCHROMIA 1+; NEUTROPHILS 87 % (42.0-75.2); TOTAL CELLS COUNTED 100
[2016-10-27 10:41] LABS: PLATELET ESTIMATE INCREASED (NORMAL)
[2016-10-27 13:18] VITALS: BP 105/63; PULSE 60; TEMP 97.9
[2016-10-27] MEDS ORDERED: LOVENOX 4040 MG/0.4 SQ (14:33)
[2016-10-27 15:41] VITALS: BP 103/53; PULSE 78; TEMP 98.2
== END 2016-10-27 17:00 | disposition home health service (06) | DRG 641 ==
LOC: MEDICAL 13:08 → PEDS 14:31
PROVIDERS: Internal Medicine
DX: E83.52 Hypercalcemia (principal); I50.22 Chronic systolic (congestive) heart failure; J96.10 Chronic respiratory failure, unspecified whether with hypoxia or hypercapnia; E46 Unspecified protein-calorie malnutrition; C34.90 Malignant neoplasm of unspecified part of unspecified bronchus or lung; C79.51 Secondary malignant neoplasm of bone; Z66 Do not resuscitate; F17.210 Nicotine dependence, cigarettes, uncomplicated; R04.0 Epistaxis; D64.9 Anemia, unspecified; L27.0 Generalized skin eruption due to drugs and medicaments taken internally; T45.1X5A Adverse effect of antineoplastic and immunosuppressive drugs, initial encounter; R53.81 Other malaise; Z86.711 Personal history of pulmonary embolism; Z79.02 Long term (current) use of antithrombotics/antiplatelets; Z68.22 Body mass index [BMI] 22.0-22.9, adult
CPT/HCPCS: 99223-AI; 99239; J1940; J3489; J7030; J7512